=== PATIENT | female | born 1960 | race American Indian/Alaskan Native ===

== ENCOUNTER 2017-03-13 15:59 | Outpatient (CLI) | payer BC ==
--- NOTE | 2017-03-14 08:27 | Mammography Report ---
BILATERAL DIGITAL SCREENING MAMMOGRAM with CAD: 03/13/17 15:59:00 CLINICAL: Routine screening. COMPARISON:03/13/16 FINDINGS: The breasts are heterogeneously dense, which may obscure small masses. No mass, architectural distortion or suspicious calcifications. IMPRESSION: No mammographic evidence of malignancy. BI-RADS CATEGORY: 1 - - Negative RECOMMENDATION: Routine mammographic screening in one year. COMMENT: Patient follow-up letters are generated by our [employer] application.
== END 2017-03-13 16:00 | disposition home or self-care (01) ==
LOC: SPVWC 15:59
PROVIDERS: ATTEND Physician Assistant
DX: Z12.31 Encounter for screening mammogram for malignant neoplasm of breast (principal)
CPT/HCPCS: 77067; G0202

== ENCOUNTER 2018-03-15 13:42 | Outpatient (CLI) | payer BC ==
--- NOTE | 2018-03-15 15:49 | Mammography Report ---
BILATERAL MAMMOGRAM: FINDINGS: The breast tissue is heterogeneously dense, which could obscure detection of small masses (approximately 50%-75% glandular). No mass, distortion, suspicious calcification, or skin change is seen. Of note is that the patient appears to have an aggregate of nonfatty tissue in the left axilla unchanged from prior exams dating back to 2016. Review of exams dating back to 2010 demonstrates that this probably has been present and is also present in the right axilla to a lesser extent. CAD was utilized. IMPRESSION: Negative mammogram. There is no mammographic evidence of malignancy. RECOMMENDATION: Follow-up per ACS guidelines. BI-RADS CATEGORY: 1 = Negative ACR BI-RADS MAMMOGRAPHIC CODES: 0 = Needs additional imaging evaluation; 1 = Negative; 2 = Benign; 3 = Probably benign; 4 = Suspicious; 5 = Malignant; 6 = Known biopsy-proven malignancy COMMENT: 1. Dense breast tissue, i.e., adenosis, fibrocystic changes, etc., may obscure an underlying neoplasm. 2. Approximately 10% of cancers are not detected with mammography. 3. A negative mammography report should not delay biopsy if a clinically suspicious mass is present. COMMENT: Patient follow-up letters are generated in [employer].
== END 2018-03-15 13:43 | disposition home or self-care (01) ==
LOC: SPVWC 13:42
PROVIDERS: ATTEND Physician Assistant
DX: Z12.31 Encounter for screening mammogram for malignant neoplasm of breast (principal)
CPT/HCPCS: 77067

== ENCOUNTER 2019-03-17 08:50 | Outpatient (CLI) | payer BC ==
--- NOTE | 2019-03-17 09:45 | Mammography Report ---
BILATERAL MAMMOGRAM: FINDINGS: The breast tissue is heterogeneously dense, which could obscure detection of small masses (approximately 50%-75% glandular). No mass, distortion, suspicious calcification, or skin change is seen. There no interval changes when compared to exams dating back to February 2016. CAD was utilized. IMPRESSION: Negative mammogram. There is no mammographic evidence of malignancy. RECOMMENDATION: Follow-up per ACS guidelines. BI-RADS CATEGORY: 1 = Negative ACR BI-RADS MAMMOGRAPHIC CODES: 0 = Needs additional imaging evaluation; 1 = Negative; 2 = Benign; 3 = Probably benign; 4 = Suspicious; 5 = Malignant; 6 = Known biopsy-proven malignancy COMMENT: 1. Dense breast tissue, i.e., adenosis, fibrocystic changes, etc., may obscure an underlying neoplasm. 2. Approximately 10% of cancers are not detected with mammography. 3. A negative mammography report should not delay biopsy if a clinically suspicious mass is present. COMMENT: Patient follow-up letters are generated in [employer].
== END 2019-03-17 08:51 | disposition home or self-care (01) ==
LOC: SPVWC 08:50
PROVIDERS: ATTEND Physician Assistant
DX: Z12.31 Encounter for screening mammogram for malignant neoplasm of breast (principal)
CPT/HCPCS: 77067

== ENCOUNTER 2021-03-21 15:42 | Outpatient (CLI) | payer BC ==
--- NOTE | 2021-03-22 10:27 | Mammography Report ---
DIGITAL SCREENING MAMMOGRAM WITH CAD, 03/21/2021 INDICATION: Routine screening mammography. TECHNIQUE: Digital bilateral 2D mammography was obtained in the craniocaudal and mediolateral obliq ue projections. This examination was interpreted with the benefit of Computer-Aided Detection analysi s. COMPARISON: 03/18/2020, 03/17/2019. FINDINGS: Breast Density: The breasts are extremely dense, which lowers the sensitivity of mammography. There is no evidence of dominant mass, suspicious calcifications or architectural distortion in eithe r breast. IMPRESSION: Follow up recommendation: Routine yearly BI-RADS Category 1: Negative. A "normal" or negative report should not discourage follow up or biopsy of a clinically significant f inding. A written summary of these findings will be mailed to the patient. The patient will be entered into a mammography reporting system which will generate a reminder letter for the patient's next appointmen t at the appropriate interval. The [employer] recommends yearly mammograms starting at age 40 and continuing as l dominique as a woman is in good health. Breast MRI is recommended for women with an approximate 20-25% or greater lifetime risk of breast cancer, including women with a strong family history of breast or ova petros cancer or who have been treated for Hodgkin's disease. Signer Name: Dakota Marrero MD Signed: 03/22/2021 10:23 AM Workstation Name: [id number]
== END 2021-03-21 15:43 | disposition home or self-care (01) ==
LOC: SPVWC 15:42
PROVIDERS: ATTEND Obstetrics & Gynecology
DX: Z12.31 Encounter for screening mammogram for malignant neoplasm of breast (principal)
CPT/HCPCS: 77067

== ENCOUNTER 2022-03-22 08:46 | Outpatient (CLI) | payer BC ==
--- NOTE | 2022-03-24 11:07 | Mammography Report ---
DIGITAL SCREENING MAMMOGRAM WITH CAD, 03/22/2022 CLINICAL INFORMATION / INDICATION: Routine screening mammography TECHNIQUE: Digital 2D mammography was obtained in the craniocaudal and mediolateral oblique projectio ns. This examination was interpreted with the benefit of Computer-Aided Detection analysis. COMPARISON: 03/21/2021 and priors FINDINGS: Breast Density: The breasts are extremely dense, which lowers the sensitivity of mammography. No dominant mass, suspicious calcifications, or architectural distortion in the right breast. Left calcifications are stable. Possible new nodule is seen measuring 6 mm in the mid depth of the le ft breast on MLO view only just above the level of the nipple. IMPRESSION: Possible new nodule on the left Follow up recommendation: Left spot compression views and ultrasound if needed BI-RADS Category 0: INCOMPLETE. Needs additional imaging evaluation and/or prior mammograms for deloris prieto. A "normal" or negative report should not discourage follow up or biopsy of a clinically significant f inding. A written summary of these findings will be mailed to the patient. The patient will be entered into a mammography reporting system which will generate a reminder letter for the patient's next appointmen t at the appropriate interval. The [employer] recommends yearly mammograms starting at age 40 and continuing as l dominique as a woman is in good health. Breast MRI is recommended for women with an approximate 20-25% or greater lifetime risk of breast cancer, including women with a strong family history of breast or ova petros cancer or who have been treated for Hodgkin's disease. Signer Name: Beni Olivarez MD Signed: 03/24/2022 10:59 AM Workstation Name: [id number]
== END 2022-03-22 08:47 | disposition home or self-care (01) ==
LOC: SPVWC 08:46
PROVIDERS: ATTEND Obstetrics & Gynecology
DX: Z12.31 Encounter for screening mammogram for malignant neoplasm of breast (principal)
CPT/HCPCS: 77067

== ENCOUNTER 2022-05-04 08:00 | Outpatient (CLI) | payer BC, OTHER ==
--- NOTE | 2022-05-04 08:53 | Mammography Report ---
DIGITAL DIAGNOSTIC MAMMOGRAM CONVENTIONAL, 05/04/2022 CLINICAL INFORMATION / INDICATION: Follow-up of indeterminate left breast nodule seen on recent scree linda mammogram. TECHNIQUE: Digital left mammographic imaging was performed. Spot compression views were obtained. COMPARISON: 03/22/2022 FINDINGS: Breast Density: The breast tissue is extremely dense, which lowers the sensitivity of mammography. The previously reported middle depth nodule located just above the level of the nipple does not persi st on spot compression imaging and is compatible with summation of normal breast tissue. No new signi ficant abnormality is identified. IMPRESSION: No mammographic evidence of malignancy. Follow up recommendation: Routine yearly screening mammogram. BI-RADS Category 2: BENIGN. A "normal" or negative report should not discourage follow up or biopsy of a clinically significant f inding. A written summary of these findings will be mailed to the patient. The patient will be entered into a mammography reporting system which will generate a reminder letter for the patient's next appointmen t at the appropriate interval. According to the [employer], yearly mammograms are recommended starting at age 40 and continuing as long as a woman is in good health. Breast MRI is recommended for women with an bev roximately 20-25% or greater lifetime risk of breast cancer, including women with a strong family his tory of breast or ovarian cancer and women who have been treated for Hodgkin's disease. Signer Name: Jesus Shannon MD Signed: 05/04/2022 8:48 AM Workstation Name: [id number]
== END 2022-05-04 08:01 | disposition home or self-care (01) ==
LOC: MAMMO 08:00
PROVIDERS: ATTEND Obstetrics & Gynecology
DX: R92.8 Other abnormal and inconclusive findings on diagnostic imaging of breast (principal); N63.0 Unspecified lump in unspecified breast